=== PATIENT | male | born 1970 | race Caucasian/White ===

== ENCOUNTER 2018-01-27 15:01 | Emergency (ER) | payer BC ==
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
--- NOTE | 2018-01-27 16:31 | CR ---
EXAMINATION: Thoracic and lumbar spine HISTORY: Pain COMPARISON: None TECHNIQUE: AP and lateral views FINDINGS: The thoracic and lumbar spinal alignment are normal. Vertebral body heights appear well edwin ntained. Mild disc space narrowing noted at L5-S1. SI joints are symmetric. Bone mineralization is no rmal. Minimal marginal osteophytes. IMPRESSION: Grossly unremarkable thoracic and lumbar spine.
== END 2018-01-27 16:56 | disposition home or self-care (01) ==
LOC: MW.ED 15:01
DX: M62.830 Muscle spasm of back (principal); I10 Essential (primary) hypertension; F17.210 Nicotine dependence, cigarettes, uncomplicated; Z79.899 Other long term (current) drug therapy
CPT/HCPCS: 72070; 72070-26; 72100; 72100-26; 99283

== ENCOUNTER 2021-09-14 06:25 | Day surgery (SDC) | payer BC, OTHER ==
[~2021-09-14 06:25] MED LIST: Lactated Ringers 1,000 ML IV SCH
[2021-09-14] MEDS ORDERED: Propofol 200 MG/20 ML SDV ONE (07:14)
[2021-09-14] MEDS ORDERED: Midazolam 1 MG/ML 2 ML SDV ONE (07:15)
[2021-09-14] MEDS ORDERED: Glycopyrrolate 0.2 MG/ML SDV ONE (07:15)
[2021-09-14] MEDS ORDERED: Lidocaine 2% 5 ML SDV ONE (07:15)
--- NOTE | 2021-09-14 07:23 | PCM.PREANE ---
Preanesthetic Assessment - Procedure Proposed Procedure: Colonoscopy - Anesthesia/Transfusion/Family Hx Anesthesia History: Prior Anesthesia Without Reaction Family History of Anesthesia Reaction: No Transfusion History: No Prior Transfusion(s) - Review of Systems General: No Symptoms Pulmonary: No Symptoms (Smokes 1/2 PPD) Cardiovascular: No Symptoms (HTN, HLD) Gastrointestinal: No Symptoms (GERD well controlled) Neurological: No Symptoms Other: Reports: None - Physical Assessment NPO Status Date: 09/13/21 NPO Status Time: 21:00 Vital Signs: Last Vital Signs Temp 96.8 F L 09/14/21 07:08 Pulse 107 H 09/14/21 07:08 Resp 14 09/14/21 07:08 BP 178/104 H 09/14/21 07:08 Pulse Ox 96 09/14/21 07:08 Height: 6 ft Weight: 107.048 kg ASA Class: 2 Mental Status: Alert & Oriented x3 Airway Class: Mallampati = 4 Dentition: Reports: Normal Dentition Thyro-Mental Finger Breadths: 3 Mouth Opening Finger Breadths: 3 ROM/Head Extension: Full Lungs: Clear to Auscultation, Normal Respiratory Effort Cardiovascular: Regular Rate, Regular Rhythm - Allergies Allergies/Adverse Reactions: Allergies Allergy/AdvReac Type Severity Reaction Status Date / Time No Known Allergies Allergy Verified 09/10/21 11:55 - Acknowledgements Anesthesia Type Planned: General Anesthesia Pt an Appropriate Candidate for the Planned Anesthesia: Yes Alternatives and Risks of Anesthesia Discussed w Pt/Guardian: Yes Pt/Guardian Understands and Agrees with Anesthesia Plan: Yes PreAnesthesia Questionnaire HEENT History: Reports: Other (See Below) Other HEENT History: wears glasses Cardiovascular History: Reports: Hypertension Respiratory History: Reports: None Gastrointestinal History: Reports: GERD Genitourinary History: Reports: None Musculoskeletal History: Reports: Back Pain, Chronic Neurological History: Reports: None Psychiatric History: Reports: Anxiety Endocrine/Metabolic History: Reports: Obesity/BMI 30+ Hematologic History: Reports: None Immunologic History: Reports: None Oncologic (Cancer) History: Reports: None Dermatologic History: Reports: None - Infectious Disease History Infectious Disease History: Reports: Chicken Pox - Past Surgical History Head Surgeries/Procedures: Reports: None HEENT Surgical History: Reports: None Cardiovascular Surgical History: Reports: None Respiratory Surgical History: Reports: None GI Surgical History: Reports: None Male Surgical History: Reports: None Endocrine Surgical History: Reports: None Neurological Surgical History: Reports: Lumbar Spine Other Neurological Surgeries/Procedures: hx back surgery Musculoskeletal Surgical History: Reports: None Oncologic Surgical History: Reports: None Dermatological Surgical History: Reports: None - SUBSTANCE USE Tobacco Use Status *Q: Current Every Day Tobacco User Tobacco Use Within Last Twelve Months: Cigarettes - HOME MEDS Home Medications: Home Meds Lisinopril 20 mg PO DAILY 01/27/18 [History] Omeprazole Magnesium [Prilosec Otc] 20 mg PO DAILY 01/27/18 [History] ALPRAZolam [Xanax] 0.25 mg PO TID PRN 09/10/21 [History] Nicotine [Nicotine Patch] 1 patch TRDERM DAILY 09/10/21 [History] Rosuvastatin Calcium 20 mg PO DAILY 09/10/21 [History] traZODone HCl [Trazodone HCl] 0.5 - 1 tab PO BEDTIME PRN 09/10/21 [History] - CURRENT (IN HOUSE) MEDS Current Meds: Current Medications Lactated Ringer's (Ringers, Lactated) 1,000 mls @ 125 mls/hr IV ASDIRECTED [facility] Last Admin: 09/14/21 06:41 Dose: 125 mls/hr Documented by: Discontinued Medications Glycopyrrolate (Glycopyrrolate 0.2 Mg/Ml Sdv) Confirm Administered Dose 0.2 mg .ROUTE .STK-MED ONE Stop: 09/14/21 07:16 Lidocaine (Lidocaine 2% 5 Ml Sdv) Confirm Administered Dose 5 ml .ROUTE .STK-MED ONE Stop: 09/14/21 07:16 Midazolam HCl (Midazolam 1 Mg/Ml 2 Ml Sdv) Confirm Administered Dose 2 mg .ROUTE .STK-MED ONE Stop: 09/14/21 07:16 Propofol (Propofol 200 Mg/20 Ml Sdv) Confirm Administered Dose 600 mg .ROUTE .STK-MED ONE Stop: 09/14/21 07:15
--- NOTE | 2021-09-14 08:30 | PCM.OPNOTE ---
- General Post-Op/Procedure Note Date of Surgery/Procedure: 09/14/21 Operative Procedure(s): colonoscopy and egd w bx Findings: see [id number] Pre Op Diagnosis: scrn colonoscopy and gerd Post-Op Diagnosis: Same Anesthesia Technique: Moderate Sedation Primary Surgeon: Jeison Quarles Pathology: egd bx Complications: None Condition: Good
--- NOTE | 2021-09-14 08:38 | PCM.POSTAN ---
POST ANESTHESIA ASSESSMENT - MENTAL STATUS Mental Status: Alert, Oriented - VITAL SIGNS Vital Signs: Last Vital Signs Temp 99.0 F 09/14/21 08:23 Pulse 99 09/14/21 08:33 Resp 16 09/14/21 08:33 BP 143/106 H 09/14/21 08:33 Pulse Ox 94 L 09/14/21 08:33 - RESPIRATORY Respiratory Status: Respiratory Rate WNL, Airway Patent, O2 Saturation Stable - CARDIOVASCULAR CV Status: Pulse Rate WNL, Blood Pressure Stable - GASTROINTESTINAL GI Status: No Symptoms - PAIN Pain Score: 0 - POST OP HYDRATION Hydration Status: Adequate & Stable
--- NOTE | 2021-09-14 09:14 | PCM48HPAN ---
Post Anesthesia Note - EVALUATION WITHIN 48HRS OF ANESTHETIC Vital Signs in Normal Range: Yes Patient Participated in Evaluation: Yes Respiratory Function Stable: Yes Airway Patent: Yes Cardiovascular Function Stable: Yes Hydration Status Stable: Yes Pain Control Satisfactory: Yes Nausea and Vomiting Control Satisfactory: Yes Mental Status Recovered: Yes Vital Signs: Last Vital Signs Temp 97.2 F 09/14/21 08:37 Pulse 90 09/14/21 08:37 Resp 14 09/14/21 08:37 BP 171/119 H 09/14/21 08:37 Pulse Ox 94 L 09/14/21 08:37 - COMMENTS/OBSERVATIONS Free Text/Narrative:: Pt doing well post-op. VSS. No apparent anesthetic complications. Dr. Ramakrishna Granados
--- NOTE | 2021-09-14 14:47 | OR ---
SURGEON: Jeison Quarles MD DATE OF PROCEDURE: 09/14/2021 PREOPERATIVE DIAGNOSES: Screening colonoscopy, and gastroesophageal reflux disease. POSTOPERATIVE DIAGNOSES: Screening colonoscopy, and gastroesophageal reflux disease. PROCEDURES PERFORMED: 1. Esophagogastroduodenoscopy with biopsy. 2. Colonoscopy. DESCRIPTION OF PROCEDURE: EGD: The patient was taken to the endoscopy room, and with the C 13 CATAPULT OPERATOR, Diprivan was administered. A well-lubricated EGD scope was gently inserted through the oropharynx, down the esophagus, passing through the gastroesophageal junction, into the stomach. The mucosa was examined upon the passage. Any etiology will be noted. Once in the stomach, we continued to advance to the distal antrum, passed through the pylorus into the second portion of the duodenum. Again, the mucosa was examined for any abnormality and etiology. The scope was then retrieved back to the stomach and then retroflexed to look at the fundus of the stomach. If a biopsy was indicated, we will biopsy the antrum, body, and gastroesophageal junction. The air will be sucked out while the scope is retrieved to reduce the patient's discomfort. The patient tolerated the procedure well. There were no intraoperative complications. Dr. Quarles was present through the whole procedure. Prior to surgery, a time-out had been called, the patient identified, procedure identified and antibiotic administered. Colonoscopy: The patient was taken to the endoscopy room. A time out was called, patient identified, and procedure identified. Diprivan was then administrated. Patient went from awake to sleep, hearing doctor talking or door closing is normal. Perineum inspection and digital examination were then performed. A well-lubricated colonoscope was gently inserted through the rectum, advanced past the rectosigmoid junction, the descending colon, splenic flexure, transverse colon, hepatic flexure, ascending colon, arrived to the cecum. Cecum was identified as dictated in the finding. Then the scope was carefully withdrawn while attention was paid to the mucosal surface for any abnormality. Air will be sucked out during the scope withdrawal. At the rectum, retroflexed to examine any rectal diseases, fistula or hemorrhoids. Patient tolerated procedure well. There were no intraoperative complications, and Dr. Quarles was present throughout the whole procedure. FINDINGS: EGD findings: 1. Patient is easily sedated with C 13 CATAPULT OPERATOR and Diprivan, patient is soundly snoring. 2. Oropharynx and proximal esophagus are free of disease, stricture, inflammation, and distal esophagus at GE junction the Z-line is at 40 cm, shows mild salmon-colored change, suggests acid reflux, GERD. Stomach rugae are normal in appearance. Antrum looks fine. Duodenum looks grossly normal. Retroflexed look at the fundus of stomach, there is no hiatal hernia. Biopsy done at antrum, body, and at the GE junction at 40 and sucked out the gas while scope pulling out. During the whole study, there is no bile or food or stevan blood or ulcer observed. Colonoscopy findings: 1. Patient is easily sedated with C 13 CATAPULT OPERATOR and Diprivan, patient is soundly snoring. 2. Bowel prep could be better. There is a large amount of liquid stool coating the mucosa, although they are easily irrigated away, but a compromised study. The yellow particle liquid stool coating the mucosa. Colon rather straightforward. Cecum indicated by ileocecal fold, one-to- one indentation, and appendiceal orifice. ScopeGuide is not available today. Mucosa was examined upon constant irrigation. Patient does not have diverticulosis, polyp, mass, growth, inflammation, stricture, AV malformation, bleeding, ulcer, none of those. Patient has mild external hemorrhoids and mild internal hemorrhoids. Patient will benefit from repeat colonoscopy in 10 years from today or if clinically indicated otherwise. AMANDA / ROBERT /[id number]
== END 2021-09-14 08:47 | disposition home or self-care (01) ==
LOC: MW.SDS 06:25
PROVIDERS: ATTEND Surgery
DX: Z12.11 Encounter for screening for malignant neoplasm of colon (principal); K21.9 Gastro-esophageal reflux disease without esophagitis; K29.50 Unspecified chronic gastritis without bleeding; K31.89 Other diseases of stomach and duodenum; F17.210 Nicotine dependence, cigarettes, uncomplicated; E78.5 Hyperlipidemia, unspecified; I10 Essential (primary) hypertension; Z79.899 Other long term (current) drug therapy; Z98.890 Other specified postprocedural states; Z68.32 Body mass index [BMI] 32.0-32.9, adult
CPT/HCPCS: 43239; 45378; J2250; J2704; J3490; J7120; 00813

== ENCOUNTER 2024-11-30 19:53 | Observation (INO) | payer BC ==
[2024-11-30] MEDS ORDERED: Sodium Chloride 0.9% 10 ML Syringe FLUSH PRN (19:56)
[2024-11-30] MEDS ORDERED: Sodium Chloride 0.9% 2.5 ML Syringe FLUSH PRN (19:56)
[2024-11-30 20:05] LABS: BASOPHILS ABSOLUTE AUTO 0.06 K/uL (0.00-0.20); BASOPHILS PERCENT AUTO 0.7 % (0.0-1.0); EOSINOPHILS PERCENT AUTO 1.2 % (0.0-6.0); HEMATOCRIT 43.9 % (42.0-52.0); HEMOGLOBIN 15.8 g/dL (14.0-18.0); IMMATURE GRAN ABSOLUTE AUTO 0.01 K/uL (0.00-0.05); IMMATURE GRAN PERCENT AUTO 0.1 % (0.0-0.4); LYMPHOCYTES PERCENT AUTO 52.2 % (24.0-44.0); MEAN CORPUSCULAR HEMOGLOBIN 34.2 pg (28.0-32.0); MEAN PLATELET VOLUME 9.2 fL (9.4-12.4); MONOCYTES ABSOLUTE AUTO 0.51 K/uL (0.00-0.80); MONOCYTES PERCENT AUTO 6.3 % (0.0-8.0); NEUTROPHILS ABSOLUTE AUTO 3.16 K/uL (1.80-7.70); NEUTROPHILS PERCENT AUTO 39.5 % (41.0-71.0); PLATELET COUNT,PLT 184 K/uL (150-400); RED BLOOD CELL COUNT 4.62 M/uL (4.52-5.90); WHITE BLOOD CELL COUNT,WBC 8.04 K/uL (3.9-11.3)
[2024-11-30 20:23] LABS: INR 1.05 (0.86-1.11)
[2024-11-30 20:31] LABS: A/G RATIO 1.1 (0.9-1.6); ALBUMIN 3.9 g/dL (3.4-5.0); BILIRUBIN TOTAL 0.6 mg/dL (0.2-1.0); CALCIUM 8.4 mg/dL (8.5-10.1); CARBON DIOXIDE,CO2 28.3 mmol/L (21.0-32.0); CREATININE 0.9 mg/dL (0.8-1.3); EST CRCL DRUG DOSING (CG) 102.99 mL/min; POTASSIUM,K 2.8 mmol/L (3.5-5.1); PROTEIN TOTAL,TP 7.4 g/dL (6.4-8.2)
[2024-11-30] MEDS: Ondansetron 4 MG/2 ML SDV IVPUSH ONE ×2 (20:35→20:38)
[2024-11-30] MEDS: Aspirin 81 MG Tab.Chew PO ONE (20:35)
[2024-11-30] MEDS: Morphine 4 MG/ML Syringe IVPUSH ONE ×2 (20:36→20:38)
[2024-11-30 20:51] LABS: MAGNESIUM 1.8 mg/dL (1.8-2.4)
[2024-11-30] MEDS: Potassium Chloride 20 MEQ Tab.ER PO ONE (20:57)
[2024-11-30] MEDS: Potassium Chloride 10 MEQ in Premix Bag 1 BAG IV SCH (20:58)
[2024-11-30] MEDS ORDERED: Naloxone 0.4 MG/ML SDV IVPUSH PRN (23:50)
[2024-11-30] MEDS ORDERED: LORazepam 2 MG/ML SDV IVPUSH PRN (23:51)
[2024-12-01] MEDS: Morphine 2 MG/ML SYRINGE IVPUSH PRN (00:16)
[2024-12-01] MEDS: Folic Acid 1 MG Tab PO SCH (00:20)
[2024-12-01] MEDS: Thiamine 200 MG/2 ML MDV IVPUSH SCH (00:20)
[2024-12-01] MEDS: traZODone 50 MG Tab PO PRN (00:23)
[2024-12-01] MEDS: ALPRAZolam 0.25 MG Tab PO PRN (00:24)
[2024-12-01 06:08] LABS: BASOPHILS ABSOLUTE AUTO 0.02 K/uL (0.00-0.20); BASOPHILS PERCENT AUTO 0.5 % (0.0-1.0); EOSINOPHILS ABSOLUTE AUTO 0.06 K/uL (0.00-0.45); EOSINOPHILS PERCENT AUTO 1.6 % (0.0-6.0); HEMATOCRIT 39.3 % (42.0-52.0); IMMATURE GRAN ABSOLUTE AUTO 0.01 K/uL (0.00-0.05); IMMATURE GRAN PERCENT AUTO 0.3 % (0.0-0.4); LYMPHOCYTES ABSOLUTE AUTO 1.62 K/uL (1.00-4.80); LYMPHOCYTES PERCENT AUTO 42.5 % (24.0-44.0); MEAN CORPUSCULAR HEMOGLOBIN 34.4 pg (28.0-32.0); MEAN CORPUSCULAR HGB CONC 35.6 g/dL (32.0-36.0); MEAN CORPUSCULAR VOLUME 96.6 fL (83.0-99.0); MEAN PLATELET VOLUME 9.3 fL (9.4-12.4); MONOCYTES ABSOLUTE AUTO 0.26 K/uL (0.00-0.80); MONOCYTES PERCENT AUTO 6.8 % (0.0-8.0); NEUTROPHILS ABSOLUTE AUTO 1.84 K/uL (1.80-7.70); NEUTROPHILS PERCENT AUTO 48.3 % (41.0-71.0); PLATELET COUNT,PLT 119 K/uL (150-400); RED BLOOD CELL COUNT 4.07 M/uL (4.52-5.90); WHITE BLOOD CELL COUNT,WBC 3.81 K/uL (3.9-11.3)
[2024-12-01 06:32] LABS: ALBUMIN 3.1 g/dL (3.4-5.0); BILIRUBIN TOTAL 0.8 mg/dL (0.2-1.0); CALCIUM 7.7 mg/dL (8.5-10.1); CARBON DIOXIDE,CO2 29.2 mmol/L (21.0-32.0); CREATININE 0.8 mg/dL (0.8-1.3); EST CRCL DRUG DOSING (CG) 115.86 mL/min; MAGNESIUM 1.5 mg/dL (1.8-2.4); PHOSPHORUS 4.3 mg/dL (2.6-4.7); POTASSIUM,K 2.9 mmol/L (3.5-5.1); PROTEIN TOTAL,TP 6.1 g/dL (6.4-8.2)
[2024-12-01] MEDS: Pantoprazole 40 MG Tab.CR PO SCH (06:33)
[2024-12-01] MEDS: Sodium Chloride 0.9% 500 ML IV ONE (08:11)
[2024-12-01] MEDS: Magnesium Sulf/Wat 4 GM/100 mL 4 GM in Premix Bag 1 BAG IV ONE (08:15)
[2024-12-01] MEDS: Rosuvastatin 10 MG Tab PO SCH (09:00)
[2024-12-01] MEDS: Potassium Chloride 10 MEQ in Premix Bag 1 BAG IV SCH ×2 (09:01→10:45)
[2024-12-01] MEDS: Potassium Chloride 20 MEQ Tab.ER PO ONE (13:40)
[2024-12-01] MEDS: Acetaminophen 325 MG Tab PO PRN (13:41)
[2024-12-01 14:47] LABS: CALCIUM 8.1 mg/dL (8.5-10.1); CARBON DIOXIDE,CO2 30.1 mmol/L (21.0-32.0); CREATININE 0.8 mg/dL (0.8-1.3); EST CRCL DRUG DOSING (CG) 115.86 mL/min; POTASSIUM,K 3.6 mmol/L (3.5-5.1)
[2024-12-01] MEDS: Lisinopril 10 MG Tab PO SCH (21:26)
[2024-12-02 05:54] LABS: BASOPHILS ABSOLUTE AUTO 0.02 K/uL (0.00-0.20); BASOPHILS PERCENT AUTO 0.5 % (0.0-1.0); EOSINOPHILS ABSOLUTE AUTO 0.06 K/uL (0.00-0.45); EOSINOPHILS PERCENT AUTO 1.6 % (0.0-6.0); HEMATOCRIT 40.2 % (42.0-52.0); HEMOGLOBIN 14.3 g/dL (14.0-18.0); IMMATURE GRAN ABSOLUTE AUTO 0.01 K/uL (0.00-0.05); IMMATURE GRAN PERCENT AUTO 0.3 % (0.0-0.4); LYMPHOCYTES ABSOLUTE AUTO 1.11 K/uL (1.00-4.80); LYMPHOCYTES PERCENT AUTO 29.7 % (24.0-44.0); MEAN CORPUSCULAR HEMOGLOBIN 34.1 pg (28.0-32.0); MEAN CORPUSCULAR HGB CONC 35.6 g/dL (32.0-36.0); MEAN CORPUSCULAR VOLUME 95.9 fL (83.0-99.0); MEAN PLATELET VOLUME 9.2 fL (9.4-12.4); MONOCYTES ABSOLUTE AUTO 0.32 K/uL (0.00-0.80); MONOCYTES PERCENT AUTO 8.6 % (0.0-8.0); NEUTROPHILS ABSOLUTE AUTO 2.22 K/uL (1.80-7.70); NEUTROPHILS PERCENT AUTO 59.3 % (41.0-71.0); PLATELET COUNT,PLT 114 K/uL (150-400); RED BLOOD CELL COUNT 4.19 M/uL (4.52-5.90); WHITE BLOOD CELL COUNT,WBC 3.74 K/uL (3.9-11.3)
[2024-12-02 06:20] LABS: ALBUMIN 3.1 g/dL (3.4-5.0); BILIRUBIN TOTAL 1.3 mg/dL (0.2-1.0); CALCIUM 7.7 mg/dL (8.5-10.1); CARBON DIOXIDE,CO2 29.9 mmol/L (21.0-32.0); CREATININE 0.8 mg/dL (0.8-1.3); EST CRCL DRUG DOSING (CG) 115.86 mL/min; MAGNESIUM 2.1 mg/dL (1.8-2.4); POTASSIUM,K 3.2 mmol/L (3.5-5.1); PROTEIN TOTAL,TP 6.1 g/dL (6.4-8.2)
[2024-12-02] MEDS: Potassium Chloride 10 MEQ Tab.ER PO ONE (08:44)
[2024-12-02] MEDS: Potassium Chloride 20 MEQ Tab.ER PO ONE (11:44)
[2024-12-02] MEDS: Lisinopril 5 MG Tab PO ONE (12:46)
== END 2024-12-02 13:20 | disposition home or self-care (01) ==
LOC: MW.ED 19:53 → MW.MS 21:44
PROVIDERS: ADMIT Internal Medicine; ATTEND Internal Medicine
DX: E87.6 Hypokalemia (principal); R07.9 Chest pain, unspecified; F41.9 Anxiety disorder, unspecified; E78.5 Hyperlipidemia, unspecified; E83.42 Hypomagnesemia; F10.10 Alcohol abuse, uncomplicated
CPT/HCPCS: 36415; 71045; 80048; 80053; 80307; 83735; 83880; 84100; 84484; 85025; 85610; 93005; A9270; J2270; J2405; J3411; J3475; J3480; J7040; 93010; 96365; 96366; 96375; 99283; 99285-25

== ENCOUNTER 2025-04-21 20:10 | Emergency (ER) | payer BC ==
[2025-04-21] MEDS: Acetaminophen/oxyCODONE 325-10 MG Tab PO ONE (21:03)
[2025-04-21] MEDS: Ondansetron 4 MG Tab.DIS PO ONE (21:10)
[2025-04-21] MEDS: Ketorolac 30 MG/ML SDV IM ONE (22:34)
[2025-04-21] MEDS: Orphenadrine 60 MG/2 ML Inj IM ONE (22:34)
== END 2025-04-21 23:56 | disposition home or self-care (01) ==
LOC: MW.ED 20:10
DX: M54.50 Low back pain, unspecified (principal); G89.29 Other chronic pain; I10 Essential (primary) hypertension; K21.9 Gastro-esophageal reflux disease without esophagitis; Z98.1 Arthrodesis status; Z79.899 Other long term (current) drug therapy; Z75.3 Unavailability and inaccessibility of health-care facilities
CPT/HCPCS: 72131; 96372; 99283; A9270; J1885; J2360; J8540

== ENCOUNTER 2025-04-27 06:30 | Emergency (ER) | payer BC ==
[2025-04-27] MEDS ORDERED: Sodium Chloride 0.9% 10 ML Syringe FLUSH PRN (07:02)
[2025-04-27] MEDS ORDERED: Sodium Chloride 0.9% 2.5 ML Syringe FLUSH PRN (07:02)
[2025-04-27] MEDS ORDERED: Naloxone 0.4 MG/ML SDV IVPUSH PRN ×2 (07:03→08:47)
[2025-04-27 07:15] LABS: BASOPHILS ABSOLUTE AUTO 0.01 K/uL (0.00-0.20); BASOPHILS PERCENT AUTO 0.1 % (0.0-1.0); EOSINOPHILS ABSOLUTE AUTO 0.09 K/uL (0.00-0.45); EOSINOPHILS PERCENT AUTO 1.2 % (0.0-6.0); IMMATURE GRAN ABSOLUTE AUTO 0.02 K/uL (0.00-0.05); IMMATURE GRAN PERCENT AUTO 0.3 % (0.0-0.4); LYMPHOCYTES ABSOLUTE AUTO 1.58 K/uL (1.00-4.80); LYMPHOCYTES PERCENT AUTO 20.8 % (24.0-44.0); MONOCYTES ABSOLUTE AUTO 0.66 K/uL (0.00-0.80); MONOCYTES PERCENT AUTO 8.7 % (0.0-8.0); NEUTROPHILS ABSOLUTE AUTO 5.23 K/uL (1.80-7.70); NEUTROPHILS PERCENT AUTO 68.9 % (41.0-71.0); NRBC ABSOLUTE 0.00 K/uL (0.00-0.02); NRBC PERCENT 0.0 /100WBC (0.0-0.2); RED BLOOD CELL COUNT 4.37 M/uL (4.52-5.90); WHITE BLOOD CELL COUNT,WBC 7.59 K/uL (3.9-11.3)
[2025-04-27] MEDS ORDERED: Esmolol/Normal Saline 2,500 MG/250 ML BAG IV SCH (07:15)
[2025-04-27 07:22] LABS: INR 1.04 (0.86-1.11); PTT,PARTIAL THROMBOPLSTIN TIME 25.5 SEC (23.9-30.7)
[2025-04-27 07:27] LABS: MEAN PLATELET VOLUME 11.1 fL (9.4-12.4); PLATELET COUNT,PLT 153 K/uL (150-400)
[2025-04-27 07:35] LABS: CHLORIDE,CL 78.0 mmol/L (98-107); POTASSIUM,K 3.7 mmol/L (3.5-5.1)
[2025-04-27 07:36] LABS: A/G RATIO 1.1 (0.9-1.6); ALANINE AMINOTRANSFERASE,ALT 93.0 IU/L (14-63); ASPARTATE AMNIOTRANSFERASE,AST 124.0 IU/L (15-37); BILIRUBIN TOTAL 2.2 mg/dL (0.2-1.0); BLOOD UREA NITROGEN,BUN 9.0 mg/dL (7.0-18.0); CARBON DIOXIDE,CO2 23.4 mmol/L (21.0-32.0); CREATINE KINASE,CK 69.0 U/L (26-308); CREATININE 1.2 mg/dL (0.8-1.3); EST CRCL DRUG DOSING (CG) 77.24 mL/min; GLUCOSE RANDOM 155.0 mg/dL (74-106); PRO B-TYPE NATRIUR PEPT,BNPPRO 286.0 pg/mL (0-125); PROTEIN TOTAL,TP 8.0 g/dL (6.4-8.2); TSH ULTRASENSITIVE 3.06 uIU/mL (0.36-3.74)
[2025-04-27 07:37] LABS: ESTIMATED GFR 72.0 mL/min (>60)
[2025-04-27] MEDS: Magnesium Sulfate 2 GM/50 mL 2 GM in Premix Bag 1 BAG IV ONE (07:43)
[2025-04-27] MEDS: Iopamidol 755 MG/ML 500 ML Multipack Bottle IVPUSH STA (07:45)
[2025-04-27] MEDS: hydrALAZINE 20 MG/ML SDV IVPUSH ONE (07:48)
[2025-04-27 08:13] LABS: LACTIC ACID 1.6 mmol/L (0.4-2.0)
[2025-04-27] MEDS: Alum Hydrox/Mag Hydrox/Simeth 15 ML, Lidocaine 2% 5 ML PO ONE (09:42)
[2025-04-27] MEDS: LORazepam 2 MG/ML SDV IVPUSH ONE (09:45)
== END 2025-04-27 12:41 ==
LOC: MW.ED 06:30
DX: R07.9 Chest pain, unspecified (principal); I10 Essential (primary) hypertension; D18.02 Hemangioma of intracranial structures; E66.9 Obesity, unspecified; E87.1 Hypo-osmolality and hyponatremia; F10.239 Alcohol dependence with withdrawal, unspecified; K21.9 Gastro-esophageal reflux disease without esophagitis; R79.89 Other specified abnormal findings of blood chemistry; Z79.899 Other long term (current) drug therapy
CPT/HCPCS: 36415; 70450; 71045; 71275; 74174; 76705; 80053; 82550; 83605; 83690; 83735; 83880; 84295; 84443; 84484; 85025; 85610; 85730; 93005; 96361; 96365; 96375; 96376; 99285; A9270; J2060; J2270; J2765; J3475; J7030; Q9967; 93010